=== PATIENT | male | born 1975 | race Asian ===

== ENCOUNTER 2025-02-17 06:31 | Emergency (ER) | payer BC, OTHER ==
[~2025-02-17] VITALS: Ht 175.3 cm; Wt 78.0 kg
[2025-02-17 06:36] VITALS: BP 153/92; PULSE 85; RESP 18; O2SAT 100; O2SAT 99
[2025-02-17 09:05] LABS: HIV 1/2 AB P24AG Negative (Negative)
[2025-02-17 09:28] LABS: HEPATITIS C AB NON REACTIVE (Neg) (Negative)
[2025-02-17 12:25] LABS: HEPATITIS C VIR.AB 0.03 INDEXVAL (0.00-0.80)
== END 2025-02-17 09:02 | disposition home or self-care (01) ==
LOC: ER 06:31
DX: S69.91XA Unspecified injury of right wrist, hand and finger(s), initial encounter (principal); E78.00 Pure hypercholesterolemia, unspecified; W46.0XXA Contact with hypodermic needle, initial encounter; Y99.0 Civilian activity done for income or pay; Y92.89 Other specified places as the place of occurrence of the external cause
CPT/HCPCS: 36415; 86705; 86706; 99283